=== PATIENT | female | born 1980 | race Caucasian/White ===

== ENCOUNTER 2017-09-15 11:41 | Outpatient (CLI) | payer OTHER ==
--- NOTE | 2017-09-15 13:47 | XRAY Report ---
THREE VIEW RIGHT KNEE: 09/15/2017 CLINICAL INDICATION: Acute pain. FINDINGS: Frontal, lateral, sunrise views of the right knee demonstrate no evidence of fracture or dislocation. The joint spaces are preserved. No effusion is present. IMPRESSION: NORMAL RIGHT KNEE. TD: 09/15/2017 13:46
== END 2017-09-15 11:42 | disposition home or self-care (01) ==
LOC: DI.S 11:41
PROVIDERS: ATTEND Nurse Practitioner Family
DX: M25.561 Pain in right knee (principal)

== ENCOUNTER 2017-09-25 17:48 | Emergency (ER) | payer OTHER ==
[2017-09-25 18:11] VITALS: BP 135/96
--- NOTE | 2017-09-25 18:22 | ED Physician Documentation ---
PD HPI UPPER EXT INJURY - Stated complaint Stated Complaint: SWOLLEN ARM - Chief complaint Chief Complaint: Ext Problem - History obtained from History obtained from: Patient - History of Present Illness Location: Other (Without specific injury she had 3 days of right upper extremity swelling from the wrist up to the shoulder. There is a pressure-like pain which is not too bad and there is no associated chest pain or trouble breathing. She has no history of DVT or PE and she is not on supplemental estrogens. 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 ) : None HEENT: None Psych: None Musculoskeletal: None Derm: None - Past Surgical History Past Surgical History: No - Present Medications Home Medications: Ambulatory Orders Medication Instructions Recorded Confirmed Vitamin [Trinatal Rx 1] 1 tab PO DAILY 10/31/14 11/01/14 Rivaroxaban [Xarelto] 15 mg PO BID 21 Days #42 tablet 09/25/17 - Allergies Allergies/Adverse Reactions: Allergies Allergy/AdvReac Type Severity Reaction Status Date / Time aspirin Allergy Anaphylaxis Verified 09/25/17 18:11 - Social History Does the pt smoke?: No Smoking Status: Current every day smoker Does the pt drink ETOH?: No Does the pt have substance abuse?: No - Immunizations Immunizations are current?: Yes - POLST Patient has POLST: No PD ED PE NORMAL - Vitals Vital signs reviewed: Yes - General General: Alert and oriented X 3, No acute distress - HEENT HEENT: PERRL, EOMI - Extremities Extremities: Other (There is pretty significant asymmetric edema of the right arm without tenderness or swelling or limited range of motion, axillary lymphadenopathy and her radial pulses are normal.) - Neuro Neuro: Alert and oriented X 3, Normal speech Results - Vitals Vitals: Vital Signs - 24 hr 09/25/17 18:04 Temperature 36.7 C Heart Rate 97 Respiratory 16 Rate Blood Pressure 135/96 H O2 Saturation 100 Oxygen O2 Source Room air - Labs Labs: Laboratory Tests 09/25/17 09/25/17 09/25/17 18:30 18:30 20:00 WBC 12.5 H RBC 4.45 Hgb 14.3 Hct 43.2 MCV 97.1 MCH 32.1 H MCHC 33.1 RDW 13.0 Plt Count 212 MPV 8.4 Neut # 8.8 H Lymph # 2.6 [place] # 0.9 Eos # 0.2 Baso # 0.1 Absolute Nucleated RBC 0.00 Nucleated RBC % 0.0 Sodium 135 Potassium 3.8 Chloride 100 L Carbon Dioxide 27 Anion Gap 8.0 BUN 13 Creatinine 0.8 Estimated GFR (MDRD) 80 L Glucose 99 Calcium 9.5 Total Bilirubin 0.5 AST 30 ALT 32 Alkaline Phosphatase 59 Total Protein 7.7 Albumin 4.3 Globulin 3.4 Albumin/Globulin Ratio 1.3 Lipase 20 L Urine Color DARK YELLOW Urine Clarity HAZY Urine pH 5.5 Ur Specific [place] 1.010 Urine Protein NEGATIVE Urine Glucose (UA) NEGATIVE Urine Ketones NEGATIVE Urine Occult Blood MODERATE H Urine Nitrite NEGATIVE Urine Bilirubin NEGATIVE Urine Urobilinogen 0.2 (NORMAL) Ur Leukocyte Esterase NEGATIVE Ur Microscopic Review INDICATED Urine Culture Comments Not Reportable Urine HCG, Qual NEGATIVE PD MEDICAL DECISION MAKING - ED course ED course: 37-year-old woman presents with upper extremity swelling that was atraumatic and is found to have an unprovoked upper extremity DVT. The hypercoagulable tests available to me in [employer] were ordered and I discussed the case with Dr. Tony by phone who is on-call for her clinic and recommended Xarelto. Departure - Departure Disposition: 01 Home, Self Care Clinical Impression: DVT of upper extremity (deep vein thrombosis) Qualifiers: Affected thrombotic vein of extremity: axillary Chronicity: acute Laterality: right Qualified Code(s): I82.A11 - Acute embolism and thrombosis of right axillary vein Condition: Good Record reviewed to determine appropriate education?: Yes Instructions: ED DVT Prescriptions: Rivaroxaban [Xarelto] 15 mg PO BID 21 Days #42 tablet Comments: Follow-up with your physician, next available appointment. Let them know that I did order protein C, factor V Leiden and antiphospholipid antibody tests which should be available to them in the computer. They may want to order additional testing and/or refer you to a senior supplier quality engineer. I have prescribed the first 3 weeks of anticoagulation recommended by the physician developmental education instructor for that clinic, after 3 weeks she will need a new prescription for a slightly higher dose, but only once a day instead of twice a day. Return immediately as discussed if he develop dark or tarry stools, significant head injury, feel weak , dizzy, short of breath, or develop chest pain. Try to quit smoking.
[2017-09-25 18:38] LABS: BASOPHILS # (AUTO) 0.1 10^3/uL (0.0-0.1); BASOPHILS % (AUTO) 0.5 %; EOSINOPHILS # (AUTO) 0.2 10^3/uL (0.0-0.7); EOSINOPHILS % (AUTO) 1.2 %; HGB - HEMOGLOBIN 14.3 g/dL (12.0-16.0); LYMPHOCYTES # (AUTO) 2.6 10^3/uL (1.5-3.5); MEAN CORPUSCULAR HEMOGLOBIN 32.1 pg (27.0-31.0); MEAN CORPUSCULAR HGB CONC 33.1 g/dL (32.0-36.0); MEAN CORPUSCULAR VOLUME 97.1 fL (81.0-99.0); MEAN PLATELET VOLUME 8.4 fL (7.9-10.8); MONOCYTES # (AUTO) 0.9 10^3/uL (0.0-1.0); NEUTROPHILS # (AUTO) 8.8 10^3/uL (1.5-6.6); NEUTROPHILS % (AUTO) 70.3 %; PLT - PLATELET COUNT 212 10^3/uL (130-450); RED BLOOD COUNT 4.45 10^6/uL (4.20-5.40); WHITE BLOOD COUNT 12.5 x10^3/uL (4.8-10.8)
[2017-09-25 18:56] LABS: ALBUMIN 4.3 g/dL (3.2-5.5); ALBUMIN/GLOBULIN RATIO 1.3 (1.0-2.2); BILIRUBIN,TOTAL 0.5 mg/dL (0.2-1.0); CALCIUM 9.5 mg/dL (8.5-10.3); CREATININE 0.8 mg/dL (0.4-1.0); TOTAL PROTEIN 7.7 g/dL (6.7-8.2)
[2017-09-25 20:09] LABS: BILIRUBIN,URINE NEGATIVE (NEGATIVE); GLUCOSE, URINE (UA) NEGATIVE (NEGATIVE); KETONES,URINE (UA) NEGATIVE (NEGATIVE); LEUKOCYTE ESTERASE, URINE NEGATIVE (NEGATIVE); NITRITE,URINE NEGATIVE (NEGATIVE); OCCULT BLOOD,URINE MODERATE (NEGATIVE); PH,URINE 5.5 PH (5.0-7.5); PROTEIN,URINE NEGATIVE (NEGATIVE); UROBILINOGEN,URINE 0.2 (NORMAL) E.U./dL (NORMAL)
[2017-09-25 20:12] LABS: HCG UR QUAL NEGATIVE
[2017-09-25 20:13] LABS: CLARITY,URINE HAZY (CLEAR)
[2017-09-25] MEDS ORDERED: RIVAROXABAN 15 MG TABLET PO STA (20:14)
[2017-09-25 20:16] LABS: BACTERIA,URINE Rare /HPF (None Seen); EPITHELIAL CELLS,UR FEW Transitional /HPF (<= Few); SQUAMOUS EPITHELIAL CELL,UR MOD Squamous (<= Few)
--- NOTE | 2017-09-25 20:32 | Ultrasound Report ---
EXAM: RIGHT UPPER EXTREMITY VENOUS ULTRASOUND EXAM DATE: 09/25/2017 08:13 PM. CLINICAL HISTORY: RUE swelling. COMPARISON: None. TECHNIQUE: Real-time sonographic vascular imaging was performed by the pharmaceutical engineer through the upper extremity utilizing both color-flow and Doppler spectral analysis. Multiple customer retention representative static kaci ges were saved for review. FINDINGS: Internal Jugular Vein (IJV): Normal. Subclavian Vein (SCV): Occlusive thrombus. Axillary Vein : Occlusive thrombus. Cephalic Vein (superficial vein): Normal. Basilic Vein (superficial vein): Normal. Brachial Vein: Normal. Contralateral Side: Subclavian Vein: Normal. Other: None. IMPRESSION: Positive for deep venous thrombosis involving the right subclavian and axillary veins. RADIA The above findings were discussed with ALANA Basurto by Dr. Enoc Machuca at 20:30 hrs on 09/25/17. Referring Provider Line: [phone] SITE ID: [id number]
[2017-09-30 13:20] LABS: PROTEIN C ACTIVITY 132 % normal (70-180)
[2017-10-03 13:33] LABS: B2 GLYCOPROTEIN I IGA AB <9 SAU (< OR = 20); B2 GLYCOPROTEIN I IGG AB <9 SGU (< OR = 20); B2 GLYCOPROTEIN I IGM AB <9 SMU (< OR = 20); CARDIOLIPIN AB IGA <11 APL
== END 2017-09-25 20:33 | disposition home or self-care (01) ==
LOC: ED 17:48
DX: O22.32 Deep phlebothrombosis in pregnancy, second trimester (principal); I82.A11 Acute embolism and thrombosis of right axillary vein; I82.B11 Acute embolism and thrombosis of right subclavian vein; O99.332 Smoking (tobacco) complicating pregnancy, second trimester; Z3A.25 25 weeks gestation of pregnancy
CPT/HCPCS: 36415; 80053; 81001; 81025; 81241; 83690; 85025; 85303; 85613; 85730; 86146; 86147; 93971; 99283; A9270; 81003; 87086

== ENCOUNTER 2017-09-26 12:37 | Day surgery (SDC) | payer OTHER ==
--- NOTE | 2017-09-26 12:48 | ED Physician Documentation ---
PD HPI FEMALE - Stated complaint Stated Complaint: BLEEDING/FEMALE - Chief complaint Chief Complaint: Abd Pain - History obtained from History obtained from: Patient - History of Present Illness Timing - onset: Today (Seen by me last night for DVT of the left upper extremity and started on Xarelto, she had a dose last night but has not filled the prescription yet. Her last menses was 2 weeks ago and normal. She is not on control. She started having bleeding today that was heavier than a normal menses. Filling up a single extra-large tampon within a few hours, but the bleeding has slowed down at this point. There is no pelvic pain with it. 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 - Present Medications Home Medications: Ambulatory Orders Medication Instructions Recorded Confirmed Rivaroxaban [Xarelto] 15 mg PO BID 21 Days #42 tablet 09/25/17 - Allergies Allergies/Adverse Reactions: Allergies Allergy/AdvReac Type Severity Reaction Status Date / Time aspirin Allergy Anaphylaxis Verified 09/26/17 12:41 - Social History Does the pt smoke?: No Smoking Status: Current every day smoker Does the pt drink ETOH?: No Does the pt have substance abuse?: No - Family History Family history: reports: Non contributory - Immunizations Immunizations are current?: Yes - POLST Patient has POLST: No PD ED PE NORMAL - Vitals Vital signs reviewed: Yes - General General: Alert and oriented X 3, No acute distress - Abdomen Abdomen: Normal bowel sounds, Soft, Non tender - Female Female : Scorer Helper present (Cass Germain RN), Other (Small blood looks old in vault. Maybe slight ooze from cx. NTTP) - Extremities Extremities: Other (No significant change in the right upper extremity appearance since last night.) - Neuro Neuro: Alert and oriented X 3, Normal speech - Psych Psych: Normal mood, Normal affect Results - Vitals Vitals: Vital Signs - 24 hr 09/26/17 12:39 Temperature 36.2 C L Heart Rate 90 Respiratory 18 Rate Blood Pressure 143/77 H O2 Saturation 100 Oxygen O2 Source Room air - Labs Labs: Laboratory Tests 09/26/17 09/26/17 09/26/17 12:45 13:00 13:00 WBC 11.8 H RBC 4.24 Hgb 14.2 Hct 41.3 MCV 97.4 MCH 33.5 H MCHC 34.4 RDW 12.9 Plt Count 205 MPV 8.8 Neut # 8.8 H Lymph # 1.9 [place] # 0.8 Eos # 0.2 Baso # 0.0 Absolute Nucleated RBC 0.01 Nucleated RBC % 0.1 Sodium Potassium Chloride Carbon Dioxide Anion Gap BUN Creatinine Estimated GFR (MDRD) Glucose Calcium Urine Color YELLOW Urine Clarity CLEAR Urine pH 6.0 Ur Specific [place] 1.020 Urine Protein NEGATIVE Urine Glucose (UA) NEGATIVE Urine Ketones NEGATIVE Urine Occult Blood LARGE H Urine Nitrite NEGATIVE Urine Bilirubin NEGATIVE Urine Urobilinogen 0.2 (NORMAL) Ur Leukocyte Esterase NEGATIVE Urine RBC 6-10 H Urine WBC 0-3 Ur Squamous Epith Cells MANY Squamous H Amorphous Sediment Moderate Urine Bacteria None Seen Ur Microscopic Review INDICATED Urine Culture Comments NOT INDICATED Urine HCG, Qual NEGATIVE Blood Type O POSITIVE Antibody Screen NEGATIVE 09/26/17 13:00 WBC RBC Hgb Hct MCV MCH MCHC RDW Plt Count MPV Neut # Lymph # [place] # Eos # Baso # Absolute Nucleated RBC Nucleated RBC % Sodium 138 Potassium 3.8 Chloride 101 Carbon Dioxide 27 Anion Gap 10.0 BUN 15 Creatinine 0.9 Estimated GFR (MDRD) 70 L Glucose 110 H Calcium 9.5 Urine Color Urine Clarity Urine pH Ur Specific [place] Urine Protein Urine Glucose (UA) Urine Ketones Urine Occult Blood Urine Nitrite Urine Bilirubin Urine Urobilinogen Ur Leukocyte Esterase Urine RBC Urine WBC Ur Squamous Epith Cells Amorphous Sediment Urine Bacteria Ur Microscopic Review Urine Culture Comments Urine HCG, Qual Blood Type Antibody Screen PD MEDICAL DECISION MAKING - ED course ED course: 37-year-old woman with what looks like mild vaginal bleeding in the setting of the recent starting of anticoagulation. Her H&H is stable. I spoke with Dr. Castillo who recommended expectant management. However I went back to tell the patient this and she said her bleeding was picking up again. I called Dr. Sarah Castillo back who will be in to see the patient, potentially to place an IUD. Dr. Sarah Castillo saw the patient and after her evaluation plans are to take her to the OR for an endometrial ablation. Departure - Departure Disposition: ED Transfer to [facility] Clinical Impression: Vaginal bleeding DVT of upper extremity (deep vein thrombosis) Qualifiers: Affected thrombotic vein of extremity: axillary Chronicity: acute Laterality: right Qualified Code(s): I82.A11 - Acute embolism and thrombosis of right axillary vein Condition: Stable Record reviewed to determine appropriate education?: Yes Instructions: ED Bleed Irregular Vaginal Follow-Up: Sarah Castillo, DO [Provider Admit Priv/Credential] -
[2017-09-26 13:02] LABS: BILIRUBIN,URINE NEGATIVE (NEGATIVE); CLARITY,URINE CLEAR (CLEAR); GLUCOSE, URINE (UA) NEGATIVE (NEGATIVE); KETONES,URINE (UA) NEGATIVE (NEGATIVE); LEUKOCYTE ESTERASE, URINE NEGATIVE (NEGATIVE); NITRITE,URINE NEGATIVE (NEGATIVE); OCCULT BLOOD,URINE LARGE (NEGATIVE); PROTEIN,URINE NEGATIVE (NEGATIVE); UROBILINOGEN,URINE 0.2 (NORMAL) E.U./dL (NORMAL)
[2017-09-26 13:03] LABS: HCG UR QUAL NEGATIVE
[2017-09-26 13:11] LABS: AMORPHOUS SEDIMENT,UR Moderate /LPF; BACTERIA,URINE None Seen /HPF (None Seen); SQUAMOUS EPITHELIAL CELL,UR MANY Squamous (<= Few)
[2017-09-26 13:18] LABS: BASOPHILS % (AUTO) 0.2 %; EOSINOPHILS # (AUTO) 0.2 10^3/uL (0.0-0.7); HGB - HEMOGLOBIN 14.2 g/dL (12.0-16.0); LYMPHOCYTES # (AUTO) 1.9 10^3/uL (1.5-3.5); LYMPHOCYTES % (AUTO) 16.1 %; MEAN CORPUSCULAR HEMOGLOBIN 33.5 pg (27.0-31.0); MEAN CORPUSCULAR HGB CONC 34.4 g/dL (32.0-36.0); MEAN CORPUSCULAR VOLUME 97.4 fL (81.0-99.0); MEAN PLATELET VOLUME 8.8 fL (7.9-10.8); MONOCYTES # (AUTO) 0.8 10^3/uL (0.0-1.0); MONOCYTES % (AUTO) 6.4 %; NEUTROPHILS # (AUTO) 8.8 10^3/uL (1.5-6.6); NEUTROPHILS % (AUTO) 75.3 %; PLT - PLATELET COUNT 205 10^3/uL (130-450); RED BLOOD COUNT 4.24 10^6/uL (4.20-5.40); RED CELL DISTRIBUTION WIDTH 12.9 % (12.0-15.0); WHITE BLOOD COUNT 11.8 x10^3/uL (4.8-10.8)
[2017-09-26 13:24] LABS: CALCIUM 9.5 mg/dL (8.5-10.3); CREATININE 0.9 mg/dL (0.4-1.0)
[2017-09-26] MEDS ORDERED: LACTATED RINGERS 1,000 ML IV ONE (16:02)
[2017-09-26] MEDS ORDERED: MIDAZOLAM 2 MG/2 ML VIAL IVP ONE (16:30)
[2017-09-26] MEDS ORDERED: DEXAMETHASONE 4 MG/ML VIAL IVP ONE (16:30)
[2017-09-26] MEDS ORDERED: ONDANSETRON 4 MG/2 ML VIAL IVP ONE (16:30)
[2017-09-26] MEDS ORDERED: PROPOFOL 200 MG/20 ML VIAL IVP ONE (16:30)
[2017-09-26] MEDS ORDERED: fentaNYL 100 MCG/2 ML VIAL IVP ONE (16:30)
--- NOTE | 2017-09-26 16:50 | OPERATIVE REPORT ---
Operative Report - Other Other Information/Narrative: Date of Operation: 09/26/2017 Surgeon: Sarah Castillo DO FACOG Pharmaceutical Officer: None Job Analyst: Ana Nova CRNA Anesthesia: LMA Pre-op Dx: 1. 37 yo 2. Abnormal uterine bleeding Post-op Dx: 1. 37 yo 2. Abnormal uterine bleeding Procedures: 1. Dilation and curettage 2. Novasure endometrial ablation 3. Pap smear Findings: 1. Scant bleeding from the cervix Specimens: 1. Endometrial curettings 2. Pap smear EBL: 20 mL Complications: None Dictation: [id number]
[2017-09-26] MEDS ORDERED: RIVAROXABAN 15 MG TABLET PO SCH (17:00)
[2017-09-26 17:08] VITALS: BP 123/81
--- NOTE | 2017-09-26 18:02 | PREOP HISTORY & PHYSICAL ---
DATE OF SERVICE: 09/26/2017 IDENTIFICATION: A 29-year-old G2, P2-0-0-2. HISTORY OF THE PRESENT ILLNESS: I was asked to see patient here at [facility] Emergency Department by Dr. Cornell Basurto. Patient had presented to the emergency department on 09/25/2017 with complaints of arm pain. She was diagnosed with a thrombus in her left arm and then placed on Xarelto. Patient, however, started having some vaginal bleeding that was described as light last night. Then, she had increasing vaginal bleeding in which she had liquid blood come out and she would soak a super tampon in about 5 hours. Today, the bleeding has increased, in which she would use 1 super tampon in 2 hours. She states that there were tiny clots in the vaginal bleeding. Mild cramping was noted. Patient has been quite worried because now she is a single parent and in the process of her . She is worried about bleeding out and no one watching her 2 kids. PAST MEDICAL HISTORY: None. PAST SURGICAL HISTORY: Bilateral tubal sterilization and hernia repair on 11/01. ALLERGIES: ASPIRIN, WITH WHICH SHE HAS THROAT SWELLING. MEDICATIONS: Xarelto 15 mg 1 tab p.o. b.i.d. for 21 days. SOCIAL HISTORY: Patient is a smoker. She does consume alcohol on a social basis. She also admits to rare marijuana smoking. Again, patient is currently her , Judd. She and Judd have 2 sons, Ab and Maribel. [facility] Dwyer, is her primary care provider and [facility] in [place], [place], is her pharmacy of choice. Patient is currently unemployed and taking care of her 2 boys. PAST OBSTETRICAL HISTORY: Two term spontaneous vaginal deliveries with the largest baby weighing 7 pounds 15 ounces. PAST GYNECOLOGIC HISTORY: She states that her menses have been normal and monthly. She bleeds about 5-7 days. She denies any history of dysmenorrhea or menorrhagia. Her last Pap smear was on 02/28/2014, in which the Pap smear in itself was negative, as well as the screen for the high risk human papillomavirus. The 08/2011 and 12/02/2012 Pap smears were both nil. Patient again is status post bilateral tubal sterilization on 2014. FAMILY HISTORY: She denies any family history of female carcinoma. OBJECTIVE VITAL SIGNS: Temperature is 36.2. Heart rate is 90. Respirations 18. Blood pressure 143/77. O2 saturation is 100% on room air. General: A well developed, well nourished caucasin female in no apparent distress. Alert and oriented x 3. HEENT: WNL Abdomen: Soft, nontender. No peritoneal signs. LABORATORY DATA: White count of 11.4, hemoglobin 14.2, hematocrit 41.3, platelets 205. Urinalysis only shows many squamous epithelial cells. HCG is negative. Blood type is O positive. Antibody screen negative. Potassium 3.8, creatinine 0.9, glucose 110. ASSESSMENT 1. A 37-year-old G2, P2-0-0-2. 2. Uterine bleeding, secondary to Xarelto. PLAN 1. I discussed with patient her options. Option #1 would be observation with the caveat being her to come to the emergency department for more definitive therapy should her bleeding worsen. Option 2 would be to have a Mirena IUD placed today. This would benefit her in which this should help her throughout her entire treatment for her thrombus. Option #3 would be to proceed with an endometrial ablation. We could be able to do this procedure today if she so desires. Finally, her last option would be to proceed with outpatient hysterectomy. After discussing with patient the risks, benefits, alternatives, indications, expectations of each of her options, patient has now decided to proceed with endometrial ablation. She severely dislikes the idea of having a foreign object in her body. 2. I have discussed with patient and consents have been signed today. In addition to the endometrial ablation, I will proceed with a Pap smear as well as an endometrial biopsy for a more complete workup. 3. I will have a prescription for Motrin as well as for oxycodone for patient' s postoperative convalescence. 4. I anticipate seeing patient in 2 weeks for routine postoperative visit. TD: 09/26/2017 18:01 MTDSusana
--- NOTE | 2017-09-26 18:57 | OPERATIVE REPORT ---
DATE OF SERVICE: 09/26/2017 PREOPERATIVE DIAGNOSES 1. A 37-year-old G2, P2-0-0-2. 2. Abnormal uterine bleeding. POSTOPERATIVE DIAGNOSES 1. A 37-year-old G2, P2-0-0-2. 2. Abnormal uterine bleeding. NAME OF PROCEDURE 1. Dilatation and curettage. 2. NovaSure endometrial ablation. 3. Pap smear. SURGEON: Sarah Castillo DO, FACOG DEV OPS ENGINEER: None ANESTHESIA: LMA. HEAD STILL OPERATOR: Ana Nova CRNA FINDINGS: Scant bleeding from cervical os. SPECIMENS 1. Endometrial curetting. 2. 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 ESTIMATED BLOOD LOSS: 20 mL COMPLICATIONS: None. BRIEF HISTORY OF PRESENT ILLNESS: Patient presented to [facility] Emergency Department for a second time in as many days. Patient was actually seen yesterday with complaints of arm swelling and was found to have a blood clot in her left arm. She was then started on Xarelto. Patient later started having some heavy vaginal bleeding. Review of her records at [facility] revealed that her most recent Pap smear in 2013 was negative, as well as a screening for the high risk human papillomavirus. I discussed with patient that my most likely diagnosis is uterine bleeding secondary to her Xarelto use. Her options were to 1. Do nothing and watch her bleeding, as she had a reassuring hemoglobin of 14.8. 2. Mirena IUD. 3. Endometrial ablation. 4. Hysterectomy, though I would not recommend it at this time. After discussing with patient the risks, benefits, alternatives, indications, and expectations of each of her options, she decided to proceed with endometrial ablation. In specific, I discussed with patient the risk of hemorrhage, infection and uterine perforation, particularly in this procedure. After patient's questions were answered to her satisfaction, she verbalized her desire to proceed with surgery. Consent forms have been signed. OPERATION IN DETAIL: Patient was identified, consented and taken to the operating room where IV access was already in place. She was then given sequential compression devices which were placed on the lower extremities and turned on. Patient was then prepped and draped in normal sterile fashion in the lithotomy position using the Yellofin stirrups. Patient was then given a satisfactory LMA anesthesia as per Ana Nova. A timeout was performed, which correctly identified patient, site of procedure, and the procedures themselves. Antibiotics were not indicated in this case. A single-tooth tenaculum was placed on the anterior lip of the cervix. The cervix was then serially dilated to a 7-Lithuanian. The endometrial length was found to be 4.0 cm and a width of 2.8 cm. Power was at 62 west. Next, sharp curettage was performed and the specimen was sent off the table. Next, with the NovaSure endometrial ablation system, the endometrium was ablated. Finally , a Pap smear was then performed. Patient tolerated the procedure well and was taken back to the recovery room in stable condition. Patient will be discharged to home later today after postoperative criteria are met. Patient's Xarelto was late in the emergency department, but I continued to withhold it until after surgery had been completed. We will go ahead and restart the Xarelto here in Recovery. I have sent a prescription for ibuprofen for short-term use for pain control. In addition, a prescription of oxycodone has been written for patient for any breakthrough pain that ibuprofen does not take care of. Patient to see me in 1- [address] [facility] for routine postoperative visit. All sponge and lap counts were correct x2 as per nurse report. TD: 09/26/2017 18:56 LUCA
== END 2017-09-26 15:31 | disposition home or self-care (01) ==
LOC: ED 12:37 → SDS 15:30
PROVIDERS: ATTEND Obstetrics & Gynecology
PROC: 0UDB8ZX Extraction of Endometrium, Via Natural or Artificial Opening Endoscopic, Diagnostic (ICD-10-PCS; 2017-09-26)
PROC: 0U5B8ZZ Destruction of Endometrium, Via Natural or Artificial Opening Endoscopic (ICD-10-PCS; principal; 2017-09-26 16:00)
DX: N93.9 Abnormal uterine and vaginal bleeding, unspecified (principal); Z79.01 Long term (current) use of anticoagulants; I82.A11 Acute embolism and thrombosis of right axillary vein
CPT/HCPCS: 36415; 58563; 80048; 81001; 81025; 85025; 86850; 86900; 86901; 99283; 99284; A9270; J7120; 81003; 87086; 88305

== ENCOUNTER 2018-09-05 16:09 | Emergency (ER) | payer OTHER ==
[2018-09-05 16:14] VITALS: BP 136/92
[2018-09-05] MEDS ORDERED: LORazepam 1 MG TABLET PO STA (16:32)
--- NOTE | 2018-09-05 16:34 | ED Physician Documentation ---
PD HPI MHE - Stated complaint Stated Complaint: ANXIETY - Chief complaint Chief Complaint: MHE - History obtained from History obtained from: Patient - History of Present Illness Primary symptom: Other (This is a 38-year-old woman without significant past medical history who feels like she is falling apart because her took her children a few days ago. She will get them back in about a week but cannot really function right now with the thought of everything happening. 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 : None HEENT: None Psych: None Musculoskeletal: None Derm: None - Past Surgical History Past Surgical History: No General: Other /EXPLOSIVE ORDNANCE DISPOSAL SPECIALIST: Tubal ligation - Present Medications Home Medications: Ambulatory Orders Medication Instructions Recorded Confirmed Lorazepam [Ativan] 1 mg PO TID PRN #15 tablet 09/05/18 - Allergies Allergies/Adverse Reactions: Allergies Allergy/AdvReac Type Severity Reaction Status Date / Time aspirin Allergy Anaphylaxis Verified 09/05/18 16:14 - Social History Does the pt smoke?: No Smoking Status: Current every day smoker Does the pt drink ETOH?: No Does the pt have substance abuse?: No - Immunizations Immunizations are current?: Yes - POLST Patient has POLST: No PD ED PE NORMAL - Vitals Vital signs reviewed: Yes - General General: Alert and oriented X 3 (Tearful but with good eye contact) - Neuro Neuro: Alert and oriented X 3, Normal speech Results - Vitals Vitals: Vital Signs - 24 hr 09/05/18 16:12 Temperature 37 C Heart Rate 109 H Respiratory 20 Rate Blood Pressure 136/92 H O2 Saturation 100 Oxygen O2 Source Room air Departure - Departure Disposition: 01 Home, Self Care Clinical Impression: Grief reaction Condition: Good Instructions: ED Stress React Prescriptions: Lorazepam [Ativan] 1 mg PO TID PRN #15 tablet PRN Reason: Anxiety Comments: Call your doctor to arrange a follow-up appointment, make the next available appointment. In the interim, return anytime if worse or if new symptoms develop. Your blood pressure was elevated today on check into the emergency department. This does not mean that you have hypertension, it is a common phenomenon to come to the emergency department and have elevated blood pressure. I recommend that you see your primary care physician within the week to have it rechecked when you are feeling better.
== END 2018-09-05 16:44 | disposition home or self-care (01) ==
LOC: ED 16:09
DX: F43.20 Adjustment disorder, unspecified (principal); R03.0 Elevated blood-pressure reading, without diagnosis of hypertension; F17.200 Nicotine dependence, unspecified, uncomplicated
CPT/HCPCS: 99283; J8499

== ENCOUNTER 2018-10-01 13:00 | Outpatient (CLI) | payer OTHER ==
[2018-10-01 13:23] LABS: MUDS CUTOFF CONCENTRATIONS CUTOFF CONC BELOW:
[2018-10-01 17:39] LABS: AMPHETAMINE SCREEN,URINE NEGATIVE (NEGATIVE); BENZODIAZEPINES SCREEN, URINE NEGATIVE (NEGATIVE); COCAINE SCREEN URINE NEGATIVE (NEGATIVE); METHADONE SCREEN, URINE NEGATIVE (NEGATIVE); METHAMPHETAMINES SCREEN, URINE NEGATIVE (NEGATIVE); OPIATE SCREEN, URINE NEGATIVE (NEGATIVE); OXYCODONE SCREEN, URINE NEGATIVE (NEGATIVE); PROPOXYPHENE SCREEN, URINE NEGATIVE (NEGATIVE); TRICYCLIC ANTIDEPRESSANT,URINE NEGATIVE (NEGATIVE)
[2018-10-02 13:11] LABS: HEPATITIS C ANTIBODY NON-REACTIVE (NON-REACTIVE)
[2018-10-02 14:15] LABS: HIV AG/AB 4TH GEN NON-REACTIVE (NON-REACTIVE)
== END 2018-10-01 13:01 | disposition home or self-care (01) ==
LOC: LAB.F 13:00
PROVIDERS: ATTEND Registered Nurse
DX: N76.0 Acute vaginitis (principal); Z86.59 Personal history of other mental and behavioral disorders
CPT/HCPCS: 36415; 80306; 80320; 81599; 86317; 86592; 86803; 87389; 87491; 87591

== ENCOUNTER 2019-01-06 08:00 | Outpatient (CLI) | payer OTHER ==
[2019-01-06 17:08] LABS: MUDS CUTOFF CONCENTRATIONS CUTOFF CONC BELOW:
[2019-01-06 17:35] LABS: AMPHETAMINE SCREEN,URINE NEGATIVE (NEGATIVE); BENZODIAZEPINES SCREEN, URINE NEGATIVE (NEGATIVE); COCAINE SCREEN URINE NEGATIVE (NEGATIVE); METHADONE SCREEN, URINE NEGATIVE (NEGATIVE); METHAMPHETAMINES SCREEN, URINE NEGATIVE (NEGATIVE); OPIATE SCREEN, URINE NEGATIVE (NEGATIVE); OXYCODONE SCREEN, URINE NEGATIVE (NEGATIVE); PROPOXYPHENE SCREEN, URINE NEGATIVE (NEGATIVE); TRICYCLIC ANTIDEPRESSANT,URINE NEGATIVE (NEGATIVE)
== END 2019-01-06 23:59 ==
LOC: LAB.R 08:00
PROVIDERS: ATTEND Family Medicine
DX: Z86.59 Personal history of other mental and behavioral disorders (principal)
CPT/HCPCS: 80306

== ENCOUNTER 2019-01-18 14:27 | Outpatient (CLI) | payer OTHER | END 2019-01-18 14:28 | disposition home or self-care (01) | LOC: LAB.S 14:27 | PROVIDERS: ATTEND Family Medicine | DX: Z86.59 Personal history of other mental and behavioral disorders (principal) | CPT/HCPCS: 36415; 80320 ==

== ENCOUNTER 2019-06-14 15:06 | Outpatient (CLI) | payer OTHER | END 2019-06-14 15:07 | disposition EMS.NT | LOC: EMS 15:06 | PROVIDERS: ATTEND Surgery | DX: R51 Headache (principal); Y04.2XXA Assault by strike against or bumped into by another person, initial encounter ==

== ENCOUNTER 2019-11-13 08:33 | Emergency (ER) | payer MEDICAID, OTHER ==
[2019-11-13] MEDS ORDERED: HYDROmorphone 1 MG/ML CARPUJECT IVP STA (08:46)
[2019-11-13] MEDS ORDERED: ONDANSETRON 4 MG/2 ML VIAL IVP STA (08:46)
[2019-11-13] MEDS ORDERED: KETOROLAC 30 MG/ML VIAL IVP STA (08:46)
--- NOTE | 2019-11-13 08:48 | ED Physician Documentation ---
PD HPI BACK PAIN - Stated complaint Stated Complaint: BACK PAIN - History obtained from History obtained from: Patient - Additional information Additional information: 39-year-old woman has had constant central and right-sided back pain for the last 3 days that is worse when laying supine. It does not radiate. No urinary complaints. No trouble with bowel movements. She is never had this before. There was no injury. No weakness, numbness, tingling of the saddle area or legs. No fevers. Tried Tylenol which was not helpful, tried cyclobenzaprine which was briefly helpful. Review of Systems Ten Systems: 10 systems reviewed and negative Constitutional: denies: Fever, Chills Throat: reports: Reviewed and negative Cardiac: reports: Reviewed and negative Respiratory: reports: Reviewed and negative PD PAST MEDICAL HISTORY - Past Medical History Cardiovascular: None Respiratory: Asthma Endocrine/Autoimmune: None GI: Other CIRCUS TRAINER: Other : None HEENT: None Psych: Anxiety Musculoskeletal: None Derm: None - Past Surgical History Past Surgical History: No General: Other /CIRCUS TRAINER: Tubal ligation - Present Medications Home Medications: Ambulatory Orders Medication Instructions Recorded Confirmed Albuterol Sulf [Ventolin Hfa 0 puffs INH Q4HR PRN 11/13/19 11/13/19 Inhaler] Bupropion HCl [Bupropion Xl] 150 mg PO DAILY 11/13/19 11/13/19 Cyclobenzaprine [Flexeril] 0 mg PO TID PRN 11/13/19 11/13/19 Ibuprofen [Motrin] 800 mg PO Q8H PRN #30 tablet 11/13/19 Oxycodone HCl/Acetaminophen 1 - 2 each PO Q6H PRN #14 tablet 11/13/19 [Percocet 5-325 mg Tablet] Tamsulosin [Flomax] 0.4 mg PO DAILY #14 capsule 11/13/19 hydrOXYzine PAMOATE [Vistaril] 25 mg PO TID PRN 11/13/19 11/13/19 - Allergies Allergies/Adverse Reactions: Allergies Allergy/AdvReac Type Severity Reaction Status Date / Time aspirin Allergy Anaphylaxis Verified 11/13/19 08:47 - Social History Does the pt smoke?: No Smoking Status: Never smoker Does the pt drink ETOH?: No Does the pt have substance abuse?: No - Family History Family history: reports: Non contributory - Immunizations Immunizations are current?: Yes - POLST Patient has POLST: No PD ED PE NORMAL - Vitals Vital signs reviewed: Yes - General General: Alert and oriented X 3, Other (She appears restless and uncomfortable) - Cardiac Cardiac: RRR, No murmur - Respiratory Respiratory: No respiratory distress, Clear bilaterally - Abdomen Abdomen: Non tender - Back Back: Other (Tender to the right flank, no midline spinal tenderness.) - Extremities Extremities: Other (The patient has equal and normal Achilles and patellar reflexes bilaterally. Normal sensation in all areas of the legs. Patient denies saddle anesthesia. Normal strength in flexion-extension at the ankles, knees, and flexion of the hips.) - Neuro Neuro: Alert and oriented X 3, No motor deficit, No sensory deficit, Normal speech Results - Vitals Vitals: Vital Signs - 24 hr 11/13/19 11/13/19 11/13/19 08:40 09:45 10:00 Temperature 36.1 C L Heart Rate 83 73 72 Respiratory 20 16 17 Rate Blood Pressure 122/81 H 107/71 110/62 O2 Saturation 100 100 100 Oxygen O2 Source Room air - Labs Labs: Laboratory Tests 11/13/19 11/13/19 11/13/19 08:46 09:05 09:05 WBC 8.0 RBC 4.55 Hgb 14.3 Hct 43.6 MCV 95.8 MCH 31.4 H MCHC 32.8 RDW 12.6 Plt Count 269 MPV 10.3 Neut # (Auto) 3.8 Lymph # (Auto) 2.9 [place] # (Auto) 0.7 Eos # (Auto) 0.5 Baso # (Auto) 0.1 Absolute Nucleated RBC 0.00 Nucleated RBC % 0.0 Sodium 137 Potassium 4.1 Chloride 106 Carbon Dioxide 23 Anion Gap 8.0 BUN 15 Creatinine 0.8 Estimated GFR (MDRD) 79 L Glucose 110 H Calcium 9.6 Total Bilirubin 0.4 AST 48 H ALT 90 H Alkaline Phosphatase 59 Total Protein 7.0 Albumin 4.0 Globulin 3.0 Albumin/Globulin Ratio 1.3 Lipase 104 H Urine Color YELLOW Urine Clarity SL. CLOUDY Urine pH 7.0 Ur Specific Raymond 1.020 Urine Protein NEGATIVE Urine Glucose (UA) NEGATIVE Urine Ketones NEGATIVE Urine Occult Blood SMALL H Urine Nitrite NEGATIVE Urine Bilirubin NEGATIVE Urine Urobilinogen 0.2 (NORMAL) Ur Leukocyte Esterase NEGATIVE Urine RBC 0-5 Urine WBC 0-3 Ur Squamous Epith Cells FEW Squamous Amorphous Sediment Marked Urine Bacteria Rare Ur Microscopic Review INDICATED Urine Culture Comments NOT INDICATED Urine HCG, Qual NEGATIVE Urine Opiates Screen NEGATIVE Ur Oxycodone Screen NEGATIVE Urine Methadone Screen NEGATIVE Ur Propoxyphene Screen NEGATIVE Ur Barbiturates Screen NEGATIVE Ur Tricyclics Screen NEGATIVE Ur Phencyclidine Scrn NEGATIVE Ur Amphetamine Screen POSITIVE H U Methamphetamines Scrn NEGATIVE U Benzodiazepines Scrn NEGATIVE Urine Cocaine Screen NEGATIVE U Cannabinoids Screen POSITIVE H - Rads (name of study) CT KUB Radiology: EMP read contemporaneously (Suspect right 3 mm right distal ureteral stone, mild hepatic steatosis) PD MEDICAL DECISION MAKING - ED course ED course: 39-year-old woman presents with back pain that is most reminiscent of renal colic based on history and physical. This was proven on CT and she was all but pain-free after medications here. Departure - Departure Disposition: 01 Home, Self Care Clinical Impression: Renal colic on right side Condition: Good Record reviewed to determine appropriate education?: Yes Instructions: ED Stone Renal W Colic Prescriptions: Tamsulosin [Flomax] 0.4 mg PO DAILY #14 capsule Ibuprofen [Motrin] 800 mg PO Q8H PRN #30 tablet PRN Reason: PAIN &/OR FEVER Oxycodone HCl/Acetaminophen [Percocet 5-325 mg Tablet] 1 - 2 each PO Q6H PRN #14 tablet PRN Reason: pain Comments: As discussed, today you are found to have a right-sided kidney stone which is causing your pain. Return for new or worsening symptoms. Do not drink or drive while taking the prescription pain medication. Drink plenty of fluids. If still having pain in the next few days follow-up with your doctor to discuss urologic referral, but the stone is only 3 mm suggesting that no intervention will necessary
[2019-11-13 09:11] LABS: MUDS CUTOFF CONCENTRATIONS CUTOFF CONC BELOW:
[2019-11-13 09:17] LABS: BILIRUBIN,URINE NEGATIVE (NEGATIVE); GLUCOSE, URINE (UA) NEGATIVE (NEGATIVE); KETONES,URINE (UA) NEGATIVE (NEGATIVE); LEUKOCYTE ESTERASE, URINE NEGATIVE (NEGATIVE); NITRITE,URINE NEGATIVE (NEGATIVE); OCCULT BLOOD,URINE SMALL (NEGATIVE); PROTEIN,URINE NEGATIVE (NEGATIVE); UROBILINOGEN,URINE 0.2 (NORMAL) E.U./dL (NORMAL)
[2019-11-13 09:19] LABS: CLARITY,URINE SL. CLOUDY (CLEAR); HCG UR QUAL NEGATIVE
[2019-11-13 09:27] LABS: AMORPHOUS SEDIMENT,UR Marked /LPF; BACTERIA,URINE Rare /HPF (None Seen); RBC,URINE 0-5 /HPF (0-5); SQUAMOUS EPITHELIAL CELL,UR FEW Squamous (<= Few)
[2019-11-13 09:35] LABS: BASOPHILS # (AUTO) 0.1 10^3/uL (0.0-0.1); BASOPHILS % (AUTO) 0.8 %; EOSINOPHILS # (AUTO) 0.5 10^3/uL (0.0-0.7); EOSINOPHILS % (AUTO) 6.7 %; HGB - HEMOGLOBIN 14.3 g/dL (12.0-16.0); LYMPHOCYTES # (AUTO) 2.9 10^3/uL (1.5-3.5); LYMPHOCYTES % (AUTO) 36.5 %; MEAN CORPUSCULAR HEMOGLOBIN 31.4 pg (27.0-31.0); MEAN CORPUSCULAR HGB CONC 32.8 g/dL (32.0-36.0); MEAN CORPUSCULAR VOLUME 95.8 fL (81.0-99.0); MEAN PLATELET VOLUME 10.3 fL (7.9-10.8); MONOCYTES # (AUTO) 0.7 10^3/uL (0.0-1.0); MONOCYTES % (AUTO) 8.4 %; NEUTROPHILS # (AUTO) 3.8 10^3/uL (1.5-6.6); NEUTROPHILS % (AUTO) 47.3 %; PLT - PLATELET COUNT 269 10^3/uL (130-450); RED BLOOD COUNT 4.55 10^6/uL (4.20-5.40); RED CELL DISTRIBUTION WIDTH 12.6 % (12.0-15.0)
[2019-11-13 09:38] LABS: ALBUMIN/GLOBULIN RATIO 1.3 (1.0-2.2); BILIRUBIN,TOTAL 0.4 mg/dL (0.2-1.0); CALCIUM 9.6 mg/dL (8.5-10.3); CREATININE 0.8 mg/dL (0.4-1.0)
--- NOTE | 2019-11-13 09:39 | CT Report ---
PROCEDURE: Abdomen/Pelvis WO INDICATIONS: R flank/back pain TECHNIQUE: Noncontrast 5 mm thick sections acquired from the diaphragms to the symphysis. 5 mm coronal and sagi ttal reformats were then performed. For radiation dose reduction, the following was used: automated exposure control, adjustment of mA and/or kV according to patient size. COMPARISON: None. FINDINGS: Image quality: Excellent. ABDOMEN: Lung bases: Lung bases are clear. Heart size is normal. Solid organs: Liver and spleen are normal in size. Mild hepatic steatosis is seen. Gallbladder is wi thin normal limits Pancreas is normal in contours. No adrenal nodules. Kidneys are normal in size. Prominence of right renal collecting system and right ureter is seen with suggestion of 3 mm calcifi cation seen in the region of distal right ureter approximately 6 cm from left UVJ concerning for a di stal right ureteral stone with right-sided hydronephrosis and proximal hydroureter. No left-sided gee al stone or hydronephrosis is seen. Peritoneum and bowel: Unenhanced bowel loops demonstrate normal wall thickness and caliber. No free fluid or air. A normal-appearing appendix is noted in bilateral lower quadrant abdomen. Mild coloni c diverticulosis is seen, no CT evidence of acute diverticulitis. Nodes and vessels: No retroperitoneal or mesenteric adenopathy by size criteria. Aorta and inferior vena cava are normal in caliber. Miscellaneous: No ventral hernias. PELVIS: Genitourinary: Bladder wall thickness is normal. Miscellaneous: No inguinal hernias or adenopathy. No gross abnormality is seen in uterus and bilater al adnexa. Bones: No suspicious bony lesions. No vertebral body compression fractures. IMPRESSION: 1. Finding is suggestive of a 3 mm right distal ureteral stone with mild right-sided hydronephrosis a nd proximal to mid hydroureter. No left-sided renal stone or hydronephrosis. 2. No bowel obstruction. Normal appendix. No free fluid of free air. 3. Mild hepatic steatosis. Reviewed by: Michael Goodrich MD on 11/13/2019 9:38 AM PDT Approved by: Michael Goodrich MD on 11/13/2019 9:38 AM PDT Station ID: [id number]
[2019-11-13 10:03] LABS: AMPHETAMINE SCREEN,URINE POSITIVE (NEGATIVE); BENZODIAZEPINES SCREEN, URINE NEGATIVE (NEGATIVE); COCAINE SCREEN URINE NEGATIVE (NEGATIVE); METHADONE SCREEN, URINE NEGATIVE (NEGATIVE); METHAMPHETAMINES SCREEN, URINE NEGATIVE (NEGATIVE); OPIATE SCREEN, URINE NEGATIVE (NEGATIVE); OXYCODONE SCREEN, URINE NEGATIVE (NEGATIVE); PROPOXYPHENE SCREEN, URINE NEGATIVE (NEGATIVE); TRICYCLIC ANTIDEPRESSANT,URINE NEGATIVE (NEGATIVE)
[2019-11-13 10:05] VITALS: BP 110/62
== END 2019-11-13 10:15 | disposition home or self-care (01) ==
LOC: ED 08:33
DX: N13.2 Hydronephrosis with renal and ureteral calculous obstruction (principal); K76.0 Fatty (change of) liver, not elsewhere classified
CPT/HCPCS: 36415; 74176; 80053; 80306; 81001; 81025; 83690; 85025; 96374; 96375; 99284; J1170; 81003; 87086

== ENCOUNTER 2020-08-03 00:11 | Emergency (ER) | payer MEDICAID ==
[2020-08-03 00:25] VITALS: BP 124/83
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
== END 2020-08-03 02:25 | disposition left against medical advice (07) ==
LOC: ED 00:11
DX: Z53.21 Procedure and treatment not carried out due to patient leaving prior to being seen by health care provider (principal)

== ENCOUNTER 2020-08-03 08:27 | Outpatient (CLI) | payer MEDICAID | END 2020-08-03 08:28 | disposition short-term general hospital (02) | LOC: EMS 08:27 | DX: R10.30 Lower abdominal pain, unspecified (principal) | CPT/HCPCS: A0425; A0429 ==

== ENCOUNTER 2023-08-18 16:34 | Outpatient (CLI) | payer MEDICAID | END 2023-08-18 23:59 | disposition critical access hospital (66) | LOC: EMS 16:34 | DX: R45.89 Other symptoms and signs involving emotional state (principal) | CPT/HCPCS: A0425; A0429; A0999 ==

== ENCOUNTER 2023-08-18 17:35 | Emergency (ER) | payer MEDICAID ==
[2023-08-18 18:00] VITALS: BP 108/78; O2SAT 97
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
== END 2023-08-18 20:14 | disposition home or self-care (01) ==
LOC: EDUNIT# → ED 17:35
DX: Z04.41 Encounter for examination and observation following alleged adult rape (principal); F19.10 Other psychoactive substance abuse, uncomplicated; Z59.02 Unsheltered homelessness
CPT/HCPCS: 99283

== ENCOUNTER 2023-12-08 16:51 | Emergency (ER) | payer MEDICAID, OTHER ==
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
[2023-12-08 17:36] LABS: BASOPHILS % (AUTO) 0.3 %; EOSINOPHILS # (AUTO) 0.3 10^3/uL (0.0-0.7); EOSINOPHILS % (AUTO) 3.4 %; HCT - HEMATOCRIT 40.9 % (37.0-47.0); HGB - HEMOGLOBIN 12.8 g/dL (12.0-16.0); LYMPHOCYTES # (AUTO) 3.1 10^3/uL (1.5-3.5); LYMPHOCYTES % (AUTO) 35.2 %; MEAN CORPUSCULAR HGB CONC 31.3 g/dL (32.0-36.0); MEAN CORPUSCULAR VOLUME 92.7 fL (81.0-99.0); MONOCYTES # (AUTO) 0.6 10^3/uL (0.0-1.0); MONOCYTES % (AUTO) 6.7 %; NEUTROPHILS # (AUTO) 4.7 10^3/uL (1.5-6.6); NEUTROPHILS % (AUTO) 54.3 %; PLT - PLATELET COUNT 232 10^3/uL (130-450); RED BLOOD COUNT 4.41 10^6/uL (4.20-5.40); RED CELL DISTRIBUTION WIDTH 12.8 % (12.0-15.0); WHITE BLOOD COUNT 8.8 x10^3/uL (4.8-10.8)
[2023-12-08 17:48] LABS: MAGNESIUM 1.9 mg/dL (1.7-2.3)
[2023-12-08 17:54] LABS: ACETAMINOPHEN 0.1 ug/mL; ALBUMIN 4.3 g/dL (3.2-5.5); ALBUMIN/GLOBULIN RATIO 1.6 (1.0-2.2); ALKALINE PHOSPHATASE 59 IU/L (42-121); ALT ALANINE AMINOTRANSFERASE 30 IU/L (10-60); AST ASPARTATE AMINOTRANSFERASE 29 IU/L (10-42); BILIRUBIN,TOTAL 0.6 mg/dL (0.2-1.0); BUN - BLOOD UREA NITROGEN 12 mg/dL (6-20); CALCIUM 10.2 mg/dL (8.5-10.3); CARBON DIOXIDE - CO2 25 mmol/L (21-32); CHLORIDE 107 mmol/L (101-111); CK- CREATINE KINASE 538 IU/L (30-223); CREATININE 0.8 mg/dL (0.6-1.3); ETOH - ETHANOL < 10.0 mg/dL; GFR - MDRD 78 (>89); GLUCOSE 96 mg/dL (74-104); LIPASE 11 U/L (11-82); POTASSIUM 4.8 mmol/L (3.5-4.5); SODIUM 139 mmol/L (135-145)
[2023-12-08] MEDS: SODIUM CHLORIDE 0.9% 1,000 ML IV ONE (17:54)
[2023-12-08 17:57] LABS: SALICYLATE < 1.5 mg/dL
[2023-12-08 18:05] LABS: THYROID STIMULATING HORMONE 0.95 uIU/mL (0.34-5.60)
[2023-12-08 19:22] VITALS: BP 138/78
[2023-12-08] MEDS: LORazepam 1 MG TABLET PO STA (19:47)
[2023-12-08 19:51] VITALS: O2SAT 100
== END 2023-12-08 19:48 | disposition home or self-care (01) ==
LOC: EDUNIT# → ED 16:51
DX: F15.159 Other stimulant abuse with stimulant-induced psychotic disorder, unspecified (principal)
CPT/HCPCS: 36415; 80053; 80143; 80179; 82077; 82550; 83690; 83735; 84443; 85025; 96360; 99284; J8499

== ENCOUNTER 2024-01-01 08:00 | Outpatient (CLI) | payer MEDICAID, OTHER ==
[2024-01-01 16:35] LABS: BILIRUBIN,URINE NEGATIVE (NEGATIVE); GLUCOSE, URINE (UA) NEGATIVE (NEGATIVE); KETONES,URINE (UA) NEGATIVE (NEGATIVE); LEUKOCYTE ESTERASE, URINE NEGATIVE (NEGATIVE); NITRITE,URINE NEGATIVE (NEGATIVE); OCCULT BLOOD,URINE MODERATE (NEGATIVE); PROTEIN,URINE NEGATIVE (NEGATIVE); UROBILINOGEN,URINE 0.2 (NORMAL) E.U./dL (NORMAL)
[2024-01-01 17:02] LABS: CLARITY,URINE CLEAR (CLEAR)
[2024-01-01 17:03] LABS: BACTERIA,URINE Rare /HPF (None Seen); HCG UR QUAL NEGATIVE; RBC,URINE 0-5 /HPF (0-5); SQUAMOUS EPITHELIAL CELL,UR MANY Squamous (<= Few); YEAST,URINE PRESENT
[2024-01-03 01:08] LABS: CHLAMYDIA TRACHOMATIS, NAA Negative (Negative); NEISSERIA GONORRHOEAE, NAA Negative (Negative)
== END 2024-01-01 23:59 | disposition home or self-care (01) ==
LOC: LAB.R 08:00
PROVIDERS: ATTEND Registered Nurse
DX: O02.81 Inappropriate change in quantitative human chorionic gonadotropin (hCG) in early pregnancy (principal); A59.9 Trichomoniasis, unspecified
CPT/HCPCS: 81001; 81025; 87086; 87491; 87591; 87661

== ENCOUNTER 2024-01-05 08:47 | Outpatient (CLI) | payer OTHER ==
[2024-01-05 08:56] LABS: BASOPHILS % (AUTO) 0.4 %; EOSINOPHILS # (AUTO) 0.5 10^3/uL (0.0-0.7); EOSINOPHILS % (AUTO) 6.7 %; HCT - HEMATOCRIT 39.1 % (37.0-47.0); HGB - HEMOGLOBIN 12.3 g/dL (12.0-16.0); LYMPHOCYTES # (AUTO) 2.6 10^3/uL (1.5-3.5); LYMPHOCYTES % (AUTO) 32.2 %; MEAN CORPUSCULAR HEMOGLOBIN 29.9 pg (27.0-31.0); MEAN CORPUSCULAR HGB CONC 31.5 g/dL (32.0-36.0); MEAN CORPUSCULAR VOLUME 94.9 fL (81.0-99.0); MEAN PLATELET VOLUME 10.5 fL (7.9-10.8); MONOCYTES # (AUTO) 0.7 10^3/uL (0.0-1.0); MONOCYTES % (AUTO) 8.9 %; NEUTROPHILS # (AUTO) 4.2 10^3/uL (1.5-6.6); NEUTROPHILS % (AUTO) 51.6 %; PLT - PLATELET COUNT 224 10^3/uL (130-450); RED BLOOD COUNT 4.12 10^6/uL (4.20-5.40); RED CELL DISTRIBUTION WIDTH 13.2 % (12.0-15.0); WHITE BLOOD COUNT 8.1 x10^3/uL (4.8-10.8)
[2024-01-05 09:37] LABS: CHOLESTEROL 149 mg/dL; HDL CHOLESTEROL 50 mg/dL; LDL CHOLESTEROL,CALCULATED 86 mg/dL; LDL/HDL RATIO 1.7 (<4.4); TRIGLYCERIDES 66 mg/dL; VLDL CHOLESTEROL 13 mg/dL
[2024-01-05 09:45] LABS: ALBUMIN 3.5 g/dL (3.2-5.5); ALBUMIN/GLOBULIN RATIO 1.5 (1.0-2.2); ALKALINE PHOSPHATASE 67 IU/L (42-121); ALT ALANINE AMINOTRANSFERASE 87 IU/L (10-60); AST ASPARTATE AMINOTRANSFERASE 53 IU/L (10-42); BILIRUBIN,TOTAL 0.2 mg/dL (0.2-1.0); BUN - BLOOD UREA NITROGEN 10 mg/dL (6-20); CALCIUM 9.8 mg/dL (8.5-10.3); CARBON DIOXIDE - CO2 32 mmol/L (21-32); CHLORIDE 106 mmol/L (101-111); CREATININE 0.8 mg/dL (0.6-1.3); GFR - MDRD 78 (>89); GLUCOSE 89 mg/dL (74-104); POTASSIUM 4.3 mmol/L (3.5-4.5); SODIUM 140 mmol/L (135-145); TOTAL PROTEIN 5.9 g/dL (6.4-8.9)
[2024-01-05 09:53] LABS: LITHIUM 0.96 mmol/L
[2024-01-05 12:25] LABS: THYROID STIMULATING HORMONE 3.48 uIU/mL (0.34-5.60)
== END 2024-01-05 08:48 | disposition home or self-care (01) ==
LOC: LAB.R 08:47
PROVIDERS: ATTEND Registered Nurse
DX: Z13.228 Encounter for screening for other metabolic disorders (principal); R78.89 Finding of other specified substances, not normally found in blood; R68.89 Other general symptoms and signs; R94.6 Abnormal results of thyroid function studies
CPT/HCPCS: 80053; 80061; 80178; 83721; 84443; 85025

== ENCOUNTER 2024-01-07 13:25 | Outpatient (CLI) | payer OTHER ==
[2024-01-07 13:37] LABS: BILIRUBIN,URINE NEGATIVE (NEGATIVE); GLUCOSE, URINE (UA) NEGATIVE (NEGATIVE); KETONES,URINE (UA) NEGATIVE (NEGATIVE); LEUKOCYTE ESTERASE, URINE NEGATIVE (NEGATIVE); NITRITE,URINE NEGATIVE (NEGATIVE); OCCULT BLOOD,URINE TRACE-INTA (NEGATIVE); PROTEIN,URINE NEGATIVE (NEGATIVE); UROBILINOGEN,URINE 0.2 (NORMAL) E.U./dL (NORMAL)
[2024-01-07 13:38] LABS: CLARITY,URINE CLEAR (CLEAR)
== END 2024-01-07 13:26 | disposition home or self-care (01) ==
LOC: LAB.R 13:25
PROVIDERS: ATTEND Registered Nurse
DX: R82.90 Unspecified abnormal findings in urine (principal)
CPT/HCPCS: 81003

== ENCOUNTER 2024-02-02 09:21 | Outpatient (CLI) | payer OTHER | END 2024-02-02 09:22 | disposition home or self-care (01) | LOC: LAB.R 09:21 | PROVIDERS: ATTEND Registered Nurse | DX: R79.83 Abnormal findings of blood amino-acid level (principal) | CPT/HCPCS: 80178 ==

== ENCOUNTER 2024-02-03 08:49 | Outpatient (CLI) | payer OTHER | END 2024-02-03 08:50 | disposition home or self-care (01) | LOC: LAB.R 08:49 | PROVIDERS: ATTEND Registered Nurse | DX: R78.89 Finding of other specified substances, not normally found in blood (principal) | CPT/HCPCS: 80178 ==